=== PATIENT | female | born 1985 | race Two or more races ===

== ENCOUNTER → 2021-11-11 | Emergency (ER) | payer OTHER ==
[2021-11-11 11:40] VITALS: BP 123/70; PULSE 100; TEMP 99; BMI 24.3
== END ==
LOC: JER 11:31
DX: R51.9 Headache, unspecified (principal)
CPT/HCPCS: 99281-25

== ENCOUNTER 2022-06-12 20:00 | Inpatient (IN) | payer OTHER ==
[2022-06-12] MEDS ORDERED: BUTORPHANOL TARTRATE 1 MG/ML VIAL IVPB PRN (21:08)
[2022-06-12] MEDS ORDERED: PROMETHAZINE HCL 25 MG/1 ML VIAL IVPUSH PRN (21:08)
[2022-06-12 21:12] LABS: BASO % 0.3 % (0-2.0); EOS % 0.8 % (0-4.5); HEMATOCRIT 31.6 % (32.4-45.2); HEMOGLOBIN 10.4 GM/dL (10.7-15.3); LYMPH % 17.4 % (8-40); MCH 27.3 pg (25.7-33.7); MCHC 33.1 g/dl (32.0-36.0); MEAN CELL VOLUME 82.4 fl (80-96); MEAN PLT VOLUME 8.7 fl (7.5-11.1); MONO % 11.6 % (3.8-10.2); NEUT % 69.9 % (42.8-82.8); PLATELET COUNT 361 10^3/uL (134-434); RBC 3.83 M/mm3 (3.60-5.2); WHITE BLOOD COUNT 8.7 K/mm3 (4.0-10.0)
[2022-06-12] MEDS ORDERED: ELECTROLYTE-148 SOLN 1,000 ML IV SCH (21:15)
[2022-06-12 21:21] LABS: INR 0.87 (0.83-1.09)
[2022-06-12 21:23] LABS: ACTIVATED PTT 25.8 SECONDS (25.2-36.5)
[2022-06-12 21:38] VITALS: BMI 30.2
[2022-06-12 21:43] LABS: BLOOD UREA NITROGEN 11.1 mg/dL (7-18)
[2022-06-12] MEDS ORDERED: DINOPROSTONE 10 MG VAGINAL SUPPOSITORY VG ONE (21:45)
[2022-06-12 21:46] LABS: CREATININE 0.6 mg/dL (0.55-1.3)
[2022-06-12 21:54] LABS: RETICULOCYTES 1.73 % (0.5-1.5)
[2022-06-12 22:08] LABS: URIC ACID 4.8 mg/dL (2.6-7.2)
[2022-06-12 22:28] LABS: HIV INTERPRETATION NEGATIVE (NEGATIVE)
[2022-06-13] MEDS ORDERED: AMPICILLIN - 2 GM in SODIUM CHLORIDE 100 ML IVPB ONE (00:15)
[2022-06-13] MEDS ORDERED: AMPICILLIN SODIUM 2 GM VIAL ONE (00:21)
[2022-06-13] MEDS ORDERED: PROMETHAZINE HCL 25 MG/1 ML VIAL ONE (01:02)
[2022-06-13] MEDS ORDERED: BUTORPHANOL TARTRATE 2 MG/ML VIAL ONE (01:02)
[2022-06-13] MEDS ORDERED: FENTANYL/BUPIVACAINE/NS/PF - PCEA - 50 ML DISP.SYRIN EP ONE (03:43)
[2022-06-13] MEDS ORDERED: BUPIVACAINE HCL/PF 0.25% (2.5MG/ML) 10 ML VIAL ONE (03:57)
[2022-06-13] MEDS ORDERED: AMPICILLIN SODIUM 1 GM VIAL ONE (04:29)
[2022-06-13] MEDS ORDERED: NALOXONE HCL 0.4 MG/ML VIAL IVPUSH PRN (04:35)
[2022-06-13] MEDS: AMPICILLIN - 1 GM in SODIUM CHLORIDE 100 ML IVPB SCH ×2 (04:35→11:38)
[2022-06-13] MEDS ORDERED: OXYTOCIN 20 UNITS in 0.9% NS 20 UNIT/1,000 ML INFUS.BAG IV ONE (04:45)
[2022-06-13] MEDS ORDERED: FENTANYL/BUPIVACAINE/NS/PF - PCEA - 50 ML DISP.SYRIN EP SCH (04:45)
[2022-06-13] MEDS ORDERED: BENZOCAINE 28 GM HEMORRHOIDAL OINTMENT TP PRN (07:10)
[2022-06-13] MEDS ORDERED: ACETAMINOPHEN 325 MG TABLET (FP) PO PRN (07:10)
[2022-06-13] MEDS ORDERED: METHYLERGONOVINE MALEATE 0.2 MG/1 ML AMP IM PRN (07:10)
[2022-06-13] MEDS ORDERED: oxyCODONE HCL 5 MG TABLET PO PRN (07:10)
[2022-06-13] MEDS ORDERED: BENZOCAINE 20% 57 GM BOTTLE TP PRN (07:10)
[2022-06-13] MEDS ORDERED: BISACODYL 10 MG SUPP.RECT RC PRN (07:10)
[2022-06-13] MEDS ORDERED: WITCH HAZEL 50% (TUCKS) 40 PAD/JAR PAD TP PRN (07:10)
[2022-06-13] MEDS ORDERED: OXYTOCIN 20 UNITS in 0.9% NS 20 UNIT/1,000 ML INFUS.BAG IV SCH (07:15)
[2022-06-13 07:42] LABS: CORD BASE EXCESS -3.3 mmol/L (0-2); CORD PCO2 45.6 mmHg (30-78); CORD pH 7.321 (7.14-7.44)
[2022-06-13 07:48] LABS: CORD HCO3 25.1 mmHg (20-29); CORD PCO2 61.8 mmHg (30-78); CORD pH 7.227 (7.14-7.44)
[2022-06-13] MEDS: IBUPROFEN 600 MG TABLET (FP) PO PRN ×3 (10:13→22:26)
[2022-06-13] MEDS ORDERED: BUTORPHANOL TARTRATE 1 MG/ML VIAL IVPB ONE (21:08)
[2022-06-14] MEDS: IBUPROFEN 600 MG TABLET (FP) PO PRN ×3 (06:02→22:11)
[2022-06-14 08:19] LABS: BASO % 0.4 % (0-2.0); EOS % 0.6 % (0-4.5); HEMATOCRIT 31.5 % (32.4-45.2); HEMOGLOBIN 9.9 GM/dL (10.7-15.3); LYMPH % 18.3 % (8-40); MCH 26.2 pg (25.7-33.7); MCHC 31.5 g/dl (32.0-36.0); MEAN CELL VOLUME 83.2 fl (80-96); MONO % 8.2 % (3.8-10.2); NEUT % 72.5 % (42.8-82.8); PLATELET COUNT 373 10^3/uL (134-434); RBC 3.78 M/mm3 (3.60-5.2); WHITE BLOOD COUNT 12.9 K/mm3 (4.0-10.0)
[2022-06-14] MEDS ORDERED: SENNOSIDES/DOCUSATE COMBO (SENNA PLUS) TABLET (UD) PO PRN (22:00)
[2022-06-15] MEDS: IBUPROFEN 600 MG TABLET (FP) PO PRN (09:46)
[2022-06-15 10:04] VITALS: BP 121/76; PULSE 90; RESP 18; TEMP 98
== END 2022-06-15 13:35 | disposition home or self-care (01) | DRG 560 ==
LOC: JLDR 20:00 → J3W 06-13 08:45
PROVIDERS: ADMIT Obstetrics & Gynecology; ATTEND Obstetrics & Gynecology
PROC: 3E0P7VZ Introduction of Hormone into Female Reproductive, Via Natural or Artificial Opening (ICD-10-PCS; 2022-06-12)
PROC: 10E0XZZ Delivery of Products of Conception, External Approach (ICD-10-PCS; principal; 2022-06-13)
PROC: 0W8NXZZ Division of Female Perineum, External Approach (ICD-10-PCS; 2022-06-13)
DX: O69.81X0 Labor and delivery complicated by cord around neck, without compression, not applicable or unspecified (principal); O99.824 Streptococcus B carrier state complicating childbirth; Z3A.39 39 weeks gestation of pregnancy; Z37.0 Single live birth
CPT/HCPCS: 36415; 36600; 59409; 80048; 80053; 82803; 82977; 83010; 84450; 84460; 84550; 85025; 85027; 85032; 85045; 85610; 85730; 86780; 86850; 86900; 86901; 87389; C9803-CS; U0003; U0005

== ENCOUNTER 2022-06-17 20:25 | Emergency (ER) | payer OTHER ==
[2022-06-17 21:01] VITALS: BP 132/82; PULSE 92; RESP 20; TEMP 98; BMI 27.3
[2022-06-17] MEDS ORDERED: HYDROCORTISONE 2.5% TOPICAL CREAM 30 GM TUBE PR ONE (21:34)
== END 2022-06-17 21:45 | disposition home or self-care (01) ==
LOC: JERFT 20:25
DX: K64.9 Unspecified hemorrhoids (principal)
CPT/HCPCS: 99283-25